=== PATIENT | female | born 1990 | race Caucasian/White ===

== ENCOUNTER 2021-03-07 17:37 | Outpatient (CLI) | payer OTHER ==
[2021-03-07] MEDS ORDERED: BETAMET ACET-BETAMETH SOD PHOS 6 MG/ML MDV IM SCH (17:45)
== END 2021-03-07 17:55 | disposition home or self-care (01) ==
LOC: FBPOP 17:37
PROVIDERS: ATTEND Obstetrics & Gynecology Obstetrics
DX: O26.899 Other specified pregnancy related conditions, unspecified trimester (principal); Z3A.00 Weeks of gestation of pregnancy not specified

== ENCOUNTER 2021-03-13 05:56 | Inpatient (IN) | payer OTHER ==
[2021-03-13] MEDS ORDERED: TERBUTALINE 1 MG/ML VIAL SQ PRN (06:07)
[2021-03-13] MEDS ORDERED: LIDOCAINE 0.5% (PF) 5 MG/ML (50 ML SDV) SQ PRN (06:07)
[2021-03-13] MEDS ORDERED: METHYLERGONOVINE 0.2 MG/ML 1 ML AMP IM PRN (06:07)
[2021-03-13] MEDS ORDERED: CARBOPROST TROMETHAMINE 250 MCG/ML 1 ML AMP IM PRN (06:07)
[2021-03-13] MEDS ORDERED: OXYTOCIN 10 UNIT/ML 1 ML VIAL IM PRN (06:07)
[2021-03-13] MEDS: LACTATED RINGERS 1,000 ML IV SCH (06:11)
[2021-03-13] MEDS ORDERED: OXYTOCIN 30 UNITS/500 ML NS 30 UNIT in SALINE 1 500ML.BAG IV SCH ×2 (06:15→21:51)
[2021-03-13] MEDS ORDERED: LACTATED RINGERS 1,000 ML IV SCH (06:15)
[2021-03-13 06:32] LABS: Basophils % (A) 0 %; Eosinophils # (A) 0.1 k/uL (0-0.7); Eosinophils % (A) 1 %; HCT 38.7 % (34.0-46.0); HGB 13.1 gm/dL (11.4-16.0); Lymphocytes # (A) 2.2 k/uL (1.0-4.8); Lymphocytes % (A) 29 %; MCH 31.4 pg (25.0-35.0); MCHC 33.9 g/dL (31.0-37.0); MCV 92.8 fL (80.0-100.0); Mean Platelet Volume 7.7; Monocytes # (A) 0.5 k/uL (0-1.0); Monocytes % (A) 6 %; Neutrophils # (A) 4.5 k/uL (1.3-7.7); Neutrophils % (A) 60 %; Platelet Count 278 k/uL (150-450); Poikilocytosis Slight; RBC 4.17 m/uL (3.80-5.40); RDW 13.1 % (11.5-15.5); WBC 7.5 k/uL (3.8-10.6)
[2021-03-13] MEDS ORDERED: BUTORPHANOL 1 MG/ML 1 ML VIAL IV PRN (08:41)
--- NOTE | 2021-03-13 08:41 | P.HPOB ---
History of Present Illness H&P Date: 03/13/21 Chief Complaint: IUP at 37 and 2, growth prescription This is a 30-year-old at 37 2/7 weeks that presents to labor and delivery for induction of labor secondary to growth resection. Patient had onset of growth restriction with an estimated weight of 6th percentile, testing has been normal. Patient did receive steroids last week. Patient has noted good movement. Otherwise patient's care has been uncomplicated. Review of Systems Constitutional: Denies chills, Denies fatigue, Denies fever Ears, nose, mouth and throat: Denies headache Cardiovascular: Denies leg edema Respiratory: Denies dyspnea Gastrointestinal: Denies nausea, Denies vomiting Genitourinary: Reports Past Medical History Past Medical History: No Reported History History of Any Multi-Drug Resistant Organisms: None Reported Past Surgical History: No Surgical Hx Reported Past Anesthesia/Blood Transfusion Reactions: No Reported Reaction Past Psychological History: No Psychological Hx Reported Smoking Status: Never smoker Past Alcohol Use History: None Reported Past Drug Use History: None Reported - Past Family History Mother Family Medical History: No Reported History Medications and Allergies Home Medications Medication Instructions Recorded Confirmed Type L.acidoph,Paracasei, B.lactis 1 each PO ONCE 03/06/21 03/13/21 History [Probiotic] Pnv No.95/Ferrous Fum/Folic AC 1 each PO ONCE 03/06/21 03/13/21 History [ Multivitamin Tablet] Allergies Allergy/AdvReac Type Severity Reaction Status Date / Time No Known Allergies Allergy Verified 03/06/21 16:26 Exam Osteopathic Statement: *. No significant issues noted on an osteopathic s tructural exam other than those noted in the History and Physical/Consult. 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 heart tones returned be category 1 and she is clint irregularly. Results Result Diagrams: 03/13/21 05:20 Assessment and Plan (1) 37 weeks gestation of Current Visit: Yes Status: Acute Code(s): Z3A.37 - 37 WEEKS GESTATION OF SNOMED Code(s): 34232578 (2) growth restriction Current Visit: Yes Status: Acute Code(s): FPG1527 - SNOMED Code(s): 05232791 Plan: 30-year-old at 37-2/7 weeks presents for induction of labor secondary to growth resection. Estimated weight noted to be the 6th percentile. Patient is admitted to labor and delivery and Pitocin induction of labor is begun per hospital protocol. Amniotomy is performed, clear fluid was obtained. Options for analgesia during labor discussed including epidural and Stadol. Patient will consider.
[2021-03-13] MEDS ORDERED: PRENATAL VIT-IRON-FOLIC ACID 1 EACH CAP PO ONE (08:45)
[2021-03-13] MEDS ORDERED: ROPIVACAINE 5MG/ML 20ML VIAL ONE (17:51)
[2021-03-13] MEDS ORDERED: fentaNYL (PF) 50 MCG/ML 5 ML AMP ONE (17:51)
[2021-03-13] MEDS ORDERED: SODIUM CHLORIDE 0.9% 100 ML BAG ONE (17:51)
[2021-03-13] MEDS ORDERED: CITRIC ACID-SODIUM CITRATE 15 ML CUP PO ONE (19:32)
[2021-03-13] MEDS ORDERED: MORPHINE SULFATE (PF) 0.3 MG/0.3 ML SYR ONE (20:01)
[2021-03-13] MEDS ORDERED: OXYTOCIN 30 UNITS/500 ML NS BAG IV ONE (20:01)
[2021-03-13] MEDS ORDERED: ePHEDrine SULFATE/0.9% NACL/PF 50 MG/5 ML SYRINGE IV ONE (20:01)
[2021-03-13] MEDS ORDERED: ONDANSETRON 4 MG/2 ML VIAL ONE (20:01)
[2021-03-13] MEDS ORDERED: METHYLERGONOVINE 0.2 MG/ML 1 ML AMP ONE (20:01)
[2021-03-13] MEDS ORDERED: DEXAMETHASONE SOD PHOSPHATE 4 MG/ML 1 ML VIAL ONE (20:01)
--- NOTE | 2021-03-13 21:13 | P.OP ---
Date of Procedure: 03/13/21 Preoperative Diagnosis: IUP at 37-2/7 weeks, growth restriction, arrest of first stage of labor Postoperative Diagnosis: Same Procedure(s) Performed: Primary section Anesthesia: epidural Surgeon: Jory Campos Cup Trimming Machine Operator #1: Jayne Mckeon Estimated Blood Loss (ml): 600 IV fluids (ml): 600 Urine output (ml): 200 Pathology: other (Placenta) Condition: stable Disposition: observation Indications for Procedure: 30-year-old at 37-2/7 weeks that presented for induction of labor secondary to growth resection. Estimated weight was noted to be 6 percentile. Patient was admitted to labor and delivery Pitocin induction of labor was begun. Patient made approximate 1 cm of change throughout the day, cervical swelling and increasing It was appreciated. Patient was counseled on primary secondary to arrest of first stage of labor. Patient stated understanding anesthesia was notified and patient was taken back to the operating suite. Operative Findings: Normal uterus tubes and ovaries were appreciated, viable male infant delivered at 2020, weight of 4 lbs. 13 oz. with Apgars of 8 and 9 at one and 5 minutes respectively. Description of Procedure: Patient was taken back to the operating suite where spinal anesthesia was found be adequate by the anesthesia department. Patient was then prepped and draped in the normal sterile fashion in the dorsal supine position. A Pfannenstiel skin incision was made the scalpel and carried through the underlying layer of fascia. The fascia was then incised in the midline and the incision was extended laterally. The superior aspect of the fascial incision was then grasped with [place] clamps, elevated and underlying rectus muscles dissected off sharply. Attention was then turned to the inferior aspect of the fascial incision which was grasped brody clamps, elevated and underlying rectus muscle was dissected off sharply. The rectus muscles were the midline the peritoneum was identified and entered. The bladder blade was then inserted into the pelvis. The vesicouterine peritoneum was identified and the bladder flap was created using sharp and blunt dissection. Bladder blade was then reinserted and the pelvis. Hysterotomy incision was made with the scalpel, was delivered in a vertex presentation. The cord was doubly clamped 2 and the was handed off to awaiting RN. Spontaneous cry was noted at . The placenta was then delivered manually and the uterus cleared of all clots and debris. Uterus incision was then closed with 0 Vicryl in a running locked fashion. A second imbricated suture was performed. Bleeding was noted in the midportion of the uterus therefore a [id number] suture was used to obtain hemostasis. The gutters were then cleared of all clots and debris and the uterus was returned to the abdomen. Hemostasis was appreciated on the uterine incision. The peritoneum was then loosely reapproximated. The rectus muscles were inspected and found to be hemostatic. The fascia was then closed with 0 Vicryl in a running fashion. The subcu tissue was irrigated found be hemostatic and closed with 3-0 Vicryl. The skin was then closed with 4-0 Vicryl in a subarticular fashion. Steri-Strips and sterile dressings were applied. All counts were correct 2 at the end of the procedure. Patient and infant tolerated procedure well and are resting comfortably.
[2021-03-13] MEDS ORDERED: NALOXONE 0.4 MG/ML 1 ML VIAL IV PRN (21:51)
[2021-03-13] MEDS ORDERED: diphenhydrAMINE 25 MG CAP PO PRN (21:51)
[2021-03-13] MEDS ORDERED: diphenhydrAMINE 50 MG CAP PO PRN (21:51)
[2021-03-13] MEDS ORDERED: diphenhydrAMINE 50 MG/ML 1 ML VIAL IVP PRN ×2 (21:51)
[2021-03-13] MEDS ORDERED: SIMETHICONE 80 MG CHEWABLE PO PRN (21:51)
[2021-03-13] MEDS ORDERED: ONDANSETRON 4 MG/2 ML VIAL IVP PRN (21:51)
[2021-03-13] MEDS ORDERED: ZOLPIDEM 5 MG TAB PO PRN (21:51)
[2021-03-13] MEDS ORDERED: METOCLOPRAMIDE 5 MG/ML 2 ML VIAL IVP PRN (21:51)
[2021-03-13] MEDS ORDERED: ACETAMINOPHEN IV (For NPO) 1,000 MG/100 ML VIAL ONE (23:00)
[2021-03-14 06:19] LABS: Basophils % (A) 0 %; Eosinophils % (A) 0 %; HCT 35.3 % (34.0-46.0); HGB 12.2 gm/dL (11.4-16.0); Lymphocytes # (A) 1.2 k/uL (1.0-4.8); Lymphocytes % (A) 9 %; MCH 31.6 pg (25.0-35.0); MCHC 34.6 g/dL (31.0-37.0); MCV 91.4 fL (80.0-100.0); Mean Platelet Volume 7.9; Monocytes # (A) 0.6 k/uL (0-1.0); Monocytes % (A) 4 %; Neutrophils # (A) 11.8 k/uL (1.3-7.7); Neutrophils % (A) 86 %; Platelet Count 220 k/uL (150-450); Poikilocytosis Slight; RBC 3.86 m/uL (3.80-5.40); RDW 12.5 % (11.5-15.5); WBC 13.7 k/uL (3.8-10.6)
--- NOTE | 2021-03-14 06:28 | P.PN ---
Progress Note - Text Progress Note Date: 03/14/21 Pt w/o complaints. Denies paresthesia. Denies pruritis or headache. Pain controlled. Epidural site c/d. POD#1 s/p with epidural Duramorph. Doing well.
[2021-03-14] MEDS: SENNOSIDES-DOCUSATE SODIUM 1 EACH TAB PO SCH ×3 (08:32→20:48)
[2021-03-14] MEDS: ACETAMINOPHEN TAB 500 MG TAB PO SCH ×5 (08:32→21:14)
--- NOTE | 2021-03-14 08:36 | P.PNOBGPC ---
Subjective - Subjective Principal diagnosis: Postop day 1 status post section Interval history: Patient did well overnight. She is ambulating without difficulty, Lacy was removed this morning awaiting spontaneous void. She states her pain is well- controlled. Her lochia is minimal. Tolerating clear liquids without nausea or vomiting Patient reports: Reports appetite normal, Reports pain well controlled, Reports ambulating normally : doing well Objective - Vital Signs Latest vital signs: Vital Signs Temp Pulse Resp BP Pulse Ox 03/13/21 22:30 72 18 124/57 100 03/13/21 22:00 68 18 161/76 100 03/13/21 21:45 68 18 156/78 100 03/13/21 21:30 71 18 149/81 99 03/13/21 21:15 67 18 153/80 99 03/13/21 21:00 97.1 F L 65 18 147/69 99 Intake and Output 03/13/21 03/14/21 03/14/21 22:59 06:59 14:59 Output Total 500 Balance -500 Output: Urine 500 Uretheral (Lacy) 500 - Exam Extremities: Absent: edema Abdomen: Present: normal appearance Incision: Present: normal, dry, intact Uterus: Present: normal, firm - Labs Labs: Abnormal Lab Results - Last 24 Hours (Table) 03/14/21 Range/Units 05:51 WBC 13.7 H (3.8-10.6) k/uL Neutrophils # 11.8 H (1.3-7.7) k/uL Assessment and Plan (1) 37 weeks gestation of Current Visit: Yes Status: Acute Code(s): Z3A.37 - 37 WEEKS GESTATION OF SNOMED Code(s): 11941622 (2) growth restriction Current Visit: Yes Status: Acute Code(s): RLV1573 - SNOMED Code(s): 43946499 (3) Arrest of dilation, delivered, current hospitalization Current Visit: Yes Status: Acute Code(s): O62.1 - SECONDARY UTERINE INERTIA SNOMED Code(s): 53497428 (4) Arrest of descent, delivered, current hospitalization Current Visit: Yes Status: Acute Code(s): O62.1 - SECONDARY UTERINE INERTIA SNOMED Code(s): 37251479 (5) S/P section Current Visit: Yes Status: Acute Code(s): Z98.891 - HISTORY OF UTERINE SCAR FROM PREVIOUS SURGERY SNOMED Code(s): 172613252 Plan: 30-year-old G8 1 now P1 status post primary for arrest of first stage of labor. Patient is doing well postoperatively. She is ambulating and voiding without difficulty. We'll advance diet to regular. Interceed discharge home tomorrow.
[2021-03-14] MEDS: IBUPROFEN IV 800 MG in SODIUM CHLORIDE 0.9% 250 ML IV SCH ×2 (11:40→19:41)
[2021-03-14] MEDS: IBUPROFEN 600 MG TAB PO SCH ×5 (12:15→23:54)
[2021-03-14] MEDS: LACTATED RINGERS 1,000 ML IV SCH ×3 (18:28→19:42)
[2021-03-14] MEDS: ACETAMINOPHEN IV (For NPO) 1,000 MG in EMPTY BAG 1 BAG IVPB SCH (19:40)
[2021-03-15 00:14] VITALS: TEMP 98.1
[2021-03-15] MEDS: ACETAMINOPHEN TAB 500 MG TAB PO SCH ×2 (02:45→08:59)
[2021-03-15] MEDS: IBUPROFEN 600 MG TAB PO SCH ×2 (05:45→11:57)
[2021-03-15 08:22] VITALS: BP 91/56; PULSE 72; RESP 16
--- NOTE | 2021-03-15 08:50 | P.DS ---
Providers Date of admission: 03/13/21 05:56 Expected date of discharge: 03/15/21 Attending physician: Jory Campos Primary care physician: Stated None - Discharge Diagnosis(es) (1) 37 weeks gestation of Current Visit: Yes Status: Acute (2) growth restriction Current Visit: Yes Status: Acute (3) Arrest of dilation, delivered, current hospitalization Current Visit: Yes Status: Acute (4) Arrest of descent, delivered, current hospitalization Current Visit: Yes Status: Acute (5) S/P section Current Visit: Yes Status: Acute Hospital Course: This is a 30-year-old that presented to labor and delivery at 37-2/7 weeks for induction of labor secondary to growth resection. Patient had been followed closely and growth [place] is noted at 6th percentile. Patient was admitted to labor and delivery and Pitocin induction of labor was b egun. After approximately 12 hours of an duction of labor 1 cm change was noted with cervical swelling. Patient was counseled on findings of exam and elected primary secondary to arrest of dilation, descent. Infant was suspected to be in an occiput transverse presentation based on exam. Patient was taken back to the operating suite where was performed without difficulty. Patient delivered a liveborn male at 2020, weight of 4 lbs. 13 oz. and Apgars of 8 and 9 at one and 5 minutes respectively. Patient has done well postoperatively. On this postoperative day #2 she is indwelling and voiding without difficulty. She is tolerating a regular diet without nausea or vomiting. She states her pain is well-controlled. She would like discharge home today. Patient Condition at Discharge: Good Plan - Discharge Summary New Discharge Prescriptions: No Action Pnv No.95/Ferrous Fum/Folic AC [ Multivitamin Tablet] 1 each PO ONCE L.acidoph,Paracasei, B.lactis [Probiotic] 1 each PO ONCE Discharge Medication List L.acidoph,Paracasei, B.lactis [Probiotic] 1 each PO ONCE 03/06/21 [History] Pnv No.95/Ferrous Fum/Folic AC [ Multivitamin Tablet] 1 each PO ONCE 03/06/21 [History] Follow up Appointment(s)/Referral(s): Jory Campos DO [Doctor of Osteopathic Medicine] - 2 Weeks Patient Instructions/Handouts: (DC), (GEN) Discharge Disposition: HOME SELF-CARE
[2021-03-15] MEDS: SENNOSIDES-DOCUSATE SODIUM 1 EACH TAB PO SCH (08:58)
== END 2021-03-15 12:11 | disposition home or self-care (01) | DRG 788 ==
LOC: 4FBP 05:56
PROVIDERS: ADMIT Obstetrics & Gynecology Obstetrics; ATTEND Obstetrics & Gynecology Obstetrics
PROC: 10D00Z1 Extraction of Products of Conception, Low, Open Approach (ICD-10-PCS; principal; 2021-03-13 06:00)
DX: O36.5930 Maternal care for other known or suspected poor fetal growth, third trimester, not applicable or unspecified (principal); Z37.0 Single live birth; Z3A.37 37 weeks gestation of pregnancy; O62.1 Secondary uterine inertia; O62.0 Primary inadequate contractions
CPT/HCPCS: 85025; 86850; 86900; 86901; 88307